=== PATIENT | male | born 1935 | race Caucasian/White ===

== ENCOUNTER → 2018-07-25 15:44 | Outpatient (CLI) | payer MEDICARE, SELFPAY ==
--- NOTE | 2018-07-25 13:58 | TISS_PTH ---
[id number] AGE/SX: 89/M ROOM: RE07/25/[address]: Earle Goodson MD : 1935 BED: DIS: SPEC #: [id number] RECD: 07/25/18 15:40 STATUS: ARACELI DARSHANA #: [id number] CATHY: 07/25/18 13:[address]: Earle Goodson DEPT: SURGICAL PATHOLOGY RECD BY: Cat Leung ENTERED: 07/26/18 10:29 SP TYPE: Tissue Bx FABRIZIO DR: Out of [facility] Doctor Tissues: Ear, NOS Procedures: Surgery Specimen Level IV HEADER OPERATION: Biopsy growth right ear annulus/TM region for histologic diagnosis, permanent pathology PRE-OP DIAGNOSIS: Right ear TM/annulus growth TISSUE SUBMITTED: Right ear TM/annulus growth MICROSCOPIC DIAGNOSIS Right ear TM/annulus growth, biopsy: Fragments of skin and desquamated keratinous material with superficial acute inflammation. Negative for malignancy. See comment. KENDELL:rossi 07/27/18 COMMENT The findings may represent cholesteatoma or epidermal inclusion cyst. Correlation with clinical findings and appropriate follow up are necessary. MICROSCOPIC DESCRIPTION Slides are reviewed. GROSS DESCRIPTION Received in fixative is one container labeled with the patient's name and designated growth right ear. The specimen consists of multiple irregular fragments of delarosa-brown soft tissue that in aggregate measure 0.4 x 0.4 x 0.1 cm. The specimen is totally submitted in one cassette. / KENDELL:rossi 07/26/18 TC:5 CPT: 73394
== END ==
PROVIDERS: Referring Provider Otolaryngology Otolaryngology/Facial Plastic Surgery; Visit Provider Otolaryngology Otolaryngology/Facial Plastic Surgery
DX: H73.891 Other specified disorders of tympanic membrane, right ear (principal)
CPT/HCPCS: 88305